=== PATIENT | male | born 2000 | race Two or more races ===

== ENCOUNTER 2021-06-13 12:08 | Emergency (ER) | payer OTHER ==
[~2021-06-13] VITALS: Ht 177.8 cm; Wt 96.2 kg
[2021-06-13] MEDS ORDERED: ZITHROMAX500 MG PO (14:33)
== END 2021-06-13 15:06 | disposition home or self-care (01) ==
LOC: ER 12:08
DX: B34.9 Viral infection, unspecified (principal); Z20.822 Contact with and (suspected) exposure to COVID-19

== ENCOUNTER 2021-07-06 16:06 | Emergency (ER) | payer OTHER ==
[~2021-07-06] VITALS: Ht 177.8 cm; Wt 96.6 kg
[~2021-07-06 16:06] MED LIST: ZITHROMAX500 MG PO
[2021-07-06] MEDS ORDERED: ZITHROMAX500 MG PO (19:40)
== END 2021-07-06 19:58 | disposition home or self-care (01) ==
LOC: ER 16:06
DX: B34.9 Viral infection, unspecified (principal); B96.0 Mycoplasma pneumoniae [M. pneumoniae] as the cause of diseases classified elsewhere

== ENCOUNTER 2023-02-01 23:50 | Emergency (ER) | payer OTHER ==
[~2023-02-01] VITALS: Ht 177.8 cm; Wt 99.8 kg
[2023-02-02] MEDS ORDERED: DICLOFENAC SODI75 MG PO (03:39)
== END 2023-02-02 05:08 | disposition home or self-care (01) ==
LOC: ER 23:50
DX: M12.579 Traumatic arthropathy, unspecified ankle and foot (principal)